=== PATIENT | male | born 1955 | race Caucasian/White ===

== ENCOUNTER → 2024-09-29 12:31 | Outpatient (CLI) | payer MEDICARE, OTHER, SELFPAY ==
[2024-09-29 13:04] LABS: Estimated Glomerular Filt Rate > 60 mL/min (>60)
--- NOTE | 2024-09-29 13:22 | DI.CT.S_ITS ---
PROCEDURE: CT IVP A/P W/WO INDICATIONS: benign prostatic hyperplasia TECHNIQUE: Optional 5 mm thick noncontrast images acquired from the diaphragm to the symphysis pubis. After the administration of intravenous contrast, 5 mm thick images acquired from the diaphragm to the symphysis pubis after a 10-minute delay. 2 mm thick coronal and sagittal reformats were then performed of the kidneys and ureters. For radiation dose reduction, the following was used: automated exposure control, adjustment of mA and/or kV according to patient size. COMPARISON: None. FINDINGS: Image quality: Diagnostic. Kidneys and Ureters: Both kidneys are normal in size, without hydronephrosis or nephrolithiasis. No perinephric fat stranding. There is normal bilateral renal enhancement. Renal calyces appear normal in morphology when filled with contrast. Opacified portions of both ureters demonstrate normal caliber Bladder: Bladder wall thickness is normal. No calcified bladder stones. OTHER: Lower chest: Unremarkable. Liver: No solid mass. Gallbladder: No radiopaque gallstones or wall thickening. Biliary ducts: No biliary dilation. Pancreas: No ductal dilation. Spleen: Size is within normal limits. Adrenal Glands: No adrenal nodules. Stomach and Bowel: Normal colonic caliber, without significant wall thickening. Peritoneum: No abnormal intraperitoneal fluid. No free air. Ventral Wall: No hernia. Abdominal Nodes: No retroperitoneal or mesenteric adenopathy by size criteria. Vessels: Aorta and inferior vena cava are normal in size. PELVIS: Pelvic Organs: Unremarkable. There is midline enlargement of the median lobe of the prostate, distorting the bladder base but separate from the ureteral insertions and no urinary tract obstruction or bladder distension is associated. Pelvic Nodes: No enlarged lymph nodes. Miscellaneous: No inguinal hernias are seen. Bones: No aggressive osseous abnormality. IMPRESSION: Asymmetric enlargement of the median lobe of the prostate gland without secondary urinary tract obstruction or bladder distension. No adenopathy osseous lesion is associated. Dictated by: Avinash Cosme M.D. on 09/29/2024 at 15:22 Approved by: Avinash Cosme M.D. on 09/29/2024 at 15:25
== END ==
PROVIDERS: Radiology Diagnostic Radiology; Referring Provider Urology; Visit Provider Urology
DX: N40.0 Benign prostatic hyperplasia without lower urinary tract symptoms (principal)
CPT/HCPCS: 36415; 74178; 82565; Q9967

== ENCOUNTER → 2025-04-23 10:36 | Outpatient (CLI) | payer MEDICARE, OTHER, SELFPAY ==
--- NOTE | 2025-04-23 10:38 | DI.US.S_ITS ---
PROCEDURE: US SCROTUM INDICATIONS: left scrotum pain TECHNIQUE: Real-time scanning was performed of the scrotum and testicles, with image documentation. Color and pulse Doppler interrogation was performed of both testicles. COMPARISON: None. FINDINGS: Right: Testicle is normal in size at 4.6 x 1.8 x 3.8 cm, and homogenous in echotexture. Epididymis is normal in overall size and morphology. No hydrocele or varicoceles. Overlying scrotal skin is normal in thickness. Left: Testicle is normal in size at 4.5 x 1.7 x 3.2 cm, and homogeneous in echotexture. Epididymis is normal in overall size and morphology. No hydrocele or varicoceles. Overlying scrotal skin is normal in thickness. Doppler: Color and pulse Doppler demonstrate normal and symmetric arterial flow in both testicles. Mildly prominent lymph nodes are noted in left inguinal region near base of penis and measures up to 1.5 x 0.7 x 1.2 cm in size. IMPRESSION: 1. No testicular mass or torsion. No significant hydroceles or varicoceles. Normal appearing bilateral epididymi. 2. Mildly prominent left inguinal lymph nodes as above which may be reactive in nature. Dictated by: Stanislaw Cuellar M.D. on 04/23/2025 at 14:17 Approved by: Stanislaw Cuellar M.D. on 04/23/2025 at 14:19
== END ==
PROVIDERS: Visit Provider Family Medicine
DX: N50.82 Scrotal pain (principal)
CPT/HCPCS: 76870; 93976